=== PATIENT | female | born 1970 | race African-American/Black ===

== ENCOUNTER 2020-12-26 12:17 | Emergency (ER) | payer MEDICAID, OTHER ==
[~2020-12-26] VITALS: Ht 172.7 cm; Wt 91.0 kg
[2020-12-26] MEDS ORDERED: SODIUM CHLORIDE 0.9% 1,000 ML IV ONE (13:00)
[2020-12-26] MEDS ORDERED: ONDANSETRON HCL 4MG/2ML INJ IV STA (13:00)
[2020-12-26] MEDS ORDERED: MORPHINE SULFATE 4 MG/ML CPJ (NOT FOR IM USE) IV STA (13:00)
[2020-12-26 13:26] LABS: BASOPHILS % 0.7 % (0.0-2.0); EOSINOPHILS % 1.5 % (0.0-5.0); HEMATOCRIT. 40.7 % (36.0-48.0); LYMPHOCYTES % 38.4 % (20.0-50.0); MEAN CORPUSCULAR HEMOGLOBIN 27.9 pg (28.0-32.0); MEAN CORPUSCULAR VOLUME 81.3 fL (81.0-99.0); MEAN PLATELET VOLUME 6.5 fl (7.4-10.4); MONOCYTES % 7.8 % (2.0-8.0); NEUTROPHILS % 51.6 % (40.0-76.0); PLATELET 342 x1000/uL (130-400); RED BLOOD CELL COUNT 5.01 mill/uL (4.2-5.4); RED CELL DISTRIBUTION WIDTH 14.1 % (11.6-14.6)
[2020-12-26 13:29] VITALS: BP 158/107
[2020-12-26 13:33] LABS: CHLORIDE 108 mEq/L (98-107)
[2020-12-26 14:03] LABS: CLARITY URINE CLOUDY (CLEAR); COLOR URINE YELLOW (YELLOW); KETONES URINE NEGATIVE (NEGATIVE); LEUKOCYTE ESTERASE URINE TRACE (NEGATIVE); NITRITE URINE NEGATIVE (NEGATIVE); OCCULT BLOOD URINE NEGATIVE (NEGATIVE); PH URINE 5.5 (4.5-8.0); PROTEIN URINE TRACE (NEGATIVE); SPECIFIC GRAVITY URINE 1.016 (1.005-1.030)
[2020-12-26] MEDS ORDERED: OMEP40CA12 MT (14:56)
== END 2020-12-26 15:30 | disposition home or self-care (01) ==
LOC: ER 12:17
DX: R10.33 Periumbilical pain (principal); R07.89 Other chest pain; Z98.890 Other specified postprocedural states; F17.290 Nicotine dependence, other tobacco product, uncomplicated
CPT/HCPCS: 36415; 71045; 74176; 80053; 81003; 83690; 84484; 85025; 93005; 96361; 96374; 96375; 99285; J2270; J2405; J7030; Z7610

== ENCOUNTER 2022-09-27 10:03 | Emergency (ER) | payer MEDICAID, OTHER ==
[~2022-09-27] VITALS: Ht 170.2 cm; Wt 79.0 kg
[~2022-09-27 10:03] MED LIST: OMEP40CA20 MT
[2022-09-27 10:09] VITALS: BP 127/81
[2022-09-27] MEDS ORDERED: ONDANSETRON 4MG ODT PO STA (10:11)
[2022-09-27] MEDS ORDERED: IBUPROFEN 600MG TABLET PO STA (10:11)
[2022-09-27 11:51] LABS: BASOPHILS % 0.3 % (0.0-2.0); CHLORIDE 95 mEq/L (98-107); LYMPHOCYTES % 12.5 % (20.0-50.0); MEAN CORPUSCULAR HEMOGLOBIN 27.5 pg (28.0-32.0); MEAN CORPUSCULAR VOLUME 80.3 fL (81.0-99.0); MEAN PLATELET VOLUME 6.6 fl (7.4-10.4); MONOCYTES % 13.4 % (2.0-8.0); NEUTROPHILS % 73.8 % (40.0-76.0); PLATELET 335 x1000/uL (130-400); RED BLOOD CELL COUNT 5.48 mill/uL (4.2-5.4); RED CELL DISTRIBUTION WIDTH 14.6 % (11.6-14.6)
[2022-09-27] MEDS ORDERED: ONDA4TAB50 MT (13:02)
[2022-09-27] MEDS ORDERED: BENZ100C86 MT (13:02)
== END 2022-09-27 13:19 | disposition home or self-care (01) ==
LOC: ER 10:03
DX: R07.89 Other chest pain (principal); Z98.890 Other specified postprocedural states
CPT/HCPCS: 36415; 71045; 80053; 84484; 85025; 93005; 99285; Q0162